=== PATIENT | female | born 1945 | race Caucasian/White ===

== ENCOUNTER 2017-08-01 19:12 | Emergency (ER) | END 2017-08-02 17:48 | disposition home or self-care (01) ==

== ENCOUNTER 2017-08-08 12:36 | Emergency (ER) | END 2017-08-08 16:37 | disposition home or self-care (01) ==

== ENCOUNTER 2018-10-25 19:50 | Emergency (ER) | payer OTHER ==
[~2018-10-25] VITALS: Ht 149.9 cm; Wt 47.4 kg
[~2018-10-25 19:50] MED LIST: BEN25 PO; CEPH-443 PO; CETI10CA PO; PRED20TA PO
[2018-10-25 20:15] VITALS: Ht 149.9 cm; Wt 47.4 kg
[2018-10-26] MEDS ORDERED: KETOROLAC 30 MG INJ IM STA (00:01)
[2018-10-26] MEDS ORDERED: NAPR-985 PO (02:52)
[2018-10-26] MEDS ORDERED: TRAM50TA2 PO ×2 (02:52→02:55)
[2018-10-26 03:38] VITALS: BP 117/86; PULSE 72; RESP 18
--- NOTE | 2018-10-26 03:52 | ERD ---
ER Documentation Chief Complaint Chief Complaint fell down 3 steps this evening, right arm pain, face injury, HPI History of Present Illness: Patient coming in today with complaint of trip and fall. Patient reports falling down stairs, denies dizziness, denies chest pain, denies shortness of breath. Patient describes a mechanical fall with pain to right arm and face. At home pharmacological/nonpharmacological treatment for symptoms: denies Denies social concerns; Denies recent foreign travel ROS All systems reviewed and are negative except as per history of present illness. Medications Home Meds Active Scripts Tramadol HCl (Tramadol HCl) 50 Mg Tablet, 25 MG PO Q8 PRN for PAIN LEVEL 6-10, #12 TAB Prov:YESENIA AHUJA V PROPERTY PRESERVATION SPECIALIST 10/26/18 Naproxen* (Naprosyn*) 500 Mg Tablet, 500 MG PO BID PRN for PAIN AND/OR INFLAMMATION, #30 TAB Prov:YESENIA AHUJA V PROPERTY PRESERVATION SPECIALIST 10/26/18 Cephalexin* (Keflex*) 500 Mg Capsule, 500 MG PO QID for 10 Days, CAP Prov:PHOEBE VITALE MD 08/08/17 Cetirizine Hcl* (Zyrtec*) 10 Mg Capsule, 10 MG PO DAILY, #15 TAB.CHEW Prov:PHOEBE VITALE MD 08/08/17 Prednisone* (Prednisone*) 20 Mg Tab, 20 MG PO DAILY for 4 Days, TAB Prov:PHOEBE VITALE MD 08/08/17 Prednisone* (Prednisone*) 20 Mg Tab, 40 MG PO DAILY for 4 Days, TAB Prov:QUINTEN BATES PA-C 08/01/17 Diphenhydramine Hcl* (Benadryl*) 25 Mg Cap, 25 MG PO Q6, #30 CAP Prov:QUINTEN BATES PA-C 08/01/17 Allergies Allergies: Coded Allergies: No Known Allergy (Unverified , 08/01/17) PMhx/Soc Medical and Surgical Hx: pt denies Medical Hx, pt denies Surgical Hx Hx Alcohol Use: No Hx Substance Use: No Hx Tobacco Use: No Smoking Status: Never smoker FmHx Family History: No diabetes, No coronary disease Physical Exam Vitals Vital Signs Date Temp Pulse Resp B/P (MAP) Pulse Ox O2 O2 Flow FiO2 Time Delivery Rate 10/26/18 98.2 72 18 117/86 99 Room Air 03:38 (96) 10/25/18 98.4 78 18 165/76 98 20:15 (105) Physical Exam Const: No acute distress, afebrile Head: Atraumatic Eyes: Normal Conjunctiva ENT: Normal External Ears, Nose and Mouth. Neck: Full range of motion. No meningismus. Resp: Clear to auscultation bilaterally Cardio: Regular rate and rhythm, no murmurs Abd: Soft, non tender, non distended. No guarding, no masses, no rigidity Skin: No petechiae or rashes Back: No midline or flank tenderness Ext: No cyanosis. Deformity noted to right wrist, tender to palpation, neurovascular intact distally, positive swelling, positive ecchymosis Neur: Awake and alert x3, speaking in clear sentences, no focal deficits or facial asymmetry Psych: Normal Mood and Affect Results 24 hrs Current Medications Medications Dose Sig/Dennis Start Time Status Last (Trade) Ordered Route PRN Stop Time Admin Dose Reason Admin Ketorolac 30 mg ONCE STAT 10/26/18 DC 10/26/18 Tromethamine IM 00:01 10/26/18 00:06 (Toradol) 00:03 Procedures/MDM ED course includes a thorough examination and history. Medications: Ketorolac for pain and inflammation Imaging: X-ray of right wrist and forearm Labs: -- Low suspicion for life-threatening medical emergency. Low suspicion for orthopedic emergency that requires immediate hospitalization/intervention. No concern for compartment syndrome. No concern for neurovascular compromise. Patient case discussed with ED Dr. Walker at 02:45. Agrees with plan of care for sugar tong splint and strict follow-up with PCP for referral to orthopedics. Patient reassessment patient reporting pain has decreased with medication. Patient hemodynamically stable. Otherwise healthy patient presenting with constellation of symptoms likely representing ulnar and radius fracture as characterized by history, physical exam findings, radiologic findings. Impression showing Comminuted intra- articular fracture of the distal radius with impaction of the distal bone. Displaced ulnar styloid fracture. Splint Assessment: Neurovascularly intact post splint placement with good fit. Sugar tong has been applied. No respiratory distress, otherwise relatively well appearing and nontoxic. Patient educated on diagnoses, prescriptions, follow-up care, return precautions. Strict return precautions given for worsening condition; questions answered discharge. Disposition for discharge with followup in 1-2 days with PCP/clinic. Departure Diagnosis: Primary Impression: Traumatic closed fracture of ulnar styloid with minimal displa... Encounter type: initial encounter Laterality: right Qualified Codes: S52.611A - Displaced fracture of right ulna styloid process, initial encounter for closed fracture Additional Impression: Radius distal fracture Encounter type: initial encounter Fracture type: closed Fracture morphology: other intra-articular Laterality: right Qualified Codes: S52.571A - Other intraarticular fracture of lower end of right radius, initial encounter for closed fracture Condition: Stable Patient Instructions: Fracture, Upper Extremity Referrals: [facility] YOU HAVE RECEIVED A MEDICAL SCREENING EXAM AND THE RESULTS INDICATE THAT YOU DO NOT HAVE A CONDITION THAT REQUIRES URGENT TREATMENT IN THE EMERGENCY DEPARTMENT. FURTHER EVALUATION AND TREATMENT OF YOUR CONDITION CAN WAIT UNTIL YOU ARE SEEN IN YOUR DOCTORS OFFICE WITHIN THE NEXT 1-2 DAYS. IT IS YOUR RESPONSIBILITY TO MAKE AN APPOINTMENT FOR FOLOW-UP CARE. IF YOU HAVE A PRIMARY DOCTOR --you should call your primary doctor and schedule an appointment IF YOU DO NOT HAVE A PRIMARY DOCTOR YOU CAN CALL OUR PHYSICIAN REFERRAL HOTLINE AT IF YOU CAN NOT AFFORD TO SEE A PHYSICIAN YOU CAN CHOSE FROM THE FOLLOWING [facility] [address] [facility]. [facility] [address] [facility] [facility] [address] [facility] [facility] [address] [facility]. [facility] [address] [facility] [facility]. [address] [facility]. [facility] YOU HAVE RECEIVED A MEDICAL SCREENING EXAM AND THE RESULTS INDICATE THAT YOU DO NOT HAVE A CONDITION THAT REQUIRES URGENT TREATMENT IN THE EMERGENCY DEPARTMENT. FURTHER EVALUATION AND TREATMENT OF YOUR CONDITION CAN WAIT UNTIL YOU ARE SEEN IN YOUR DOCTORS OFFICE WITHIN THE NEXT 1-2 DAYS. IT IS YOUR RESPONSIBILITY TO MAKE AN APPOINTMENT FOR FOLOW-UP CARE. IF YOU HAVE A PRIMARY DOCTOR --you should call your primary doctor and schedule and appointment IF YOU DO NOT HAVE A PRIMARY DOCTOR YOU CAN CALL OUR PHYSICIAN REFERRAL HOTLINE AT . IF YOU CAN NOT AFFORD TO SEE A PHYSICIAN YOU CAN CHOSE FROM THE FOLLOWING [facility] INSTITUTIONS: [facility] [address] [place] [address] [facility] [address] [place] [address] [facility] + [facility] [address] [place] [address] [facility] Additional Instructions: Thank you very much for allowing us to participate in your care. Your health and safety is our top priority at [facility]. It is important to read all discharge instructions and education provided in your discharge packet. Call your primary care doctor TOMORROW for an appointment during the next 1-2 days and bring all the information and medications prescribed. It is very imp ortant for your primary care doctor so that you can get a referral to an orthopedic surgeon for further evaluation. Have prescriptions filled and follow precisely the directions on the label. If the symptoms get worse and your provider is unavailable, return to the Emergency Department immediately. Increased swelling, increased pain, numbness, tingling, decreased sensation; return to emergency room YESENIA AHUJA NP Oct 26, 2018 03:52
== END 2018-10-26 03:39 | disposition home or self-care (01) ==
LOC: FTE 19:50
DX: S52.611A Displaced fracture of right ulna styloid process, initial encounter for closed fracture (principal); S52.571A Other intraarticular fracture of lower end of right radius, initial encounter for closed fracture; W10.9XXA Fall (on) (from) unspecified stairs and steps, initial encounter; Y92.9 Unspecified place or not applicable
CPT/HCPCS: 29125; 73090; 73110; 96372; 99284; J1885

== ENCOUNTER 2018-12-08 13:47 | Emergency (ER) | payer OTHER ==
[~2018-12-08] VITALS: Wt 45.2 kg
[~2018-12-08 13:47] MED LIST changes: +NAPR-985 PO; +TRAM50TA2 PO
[2018-12-08 13:48] VITALS: Wt 45.2 kg
--- NOTE | 2018-12-08 16:23 | ERD ---
ER Documentation Chief Complaint Chief Complaint AP SINCE LAST NIGHT HPI The patient is a 73-year-old female, presenting with epigastric abdominal pain that began around 2 AM today, vomited 3 times, mostly mucus, had similar symptoms previously, denies fever, chills, neck pain, chest pain, dyspnea, dysuria, diarrhea. She does not smoke nor drink Past medical history: None Past surgical history: Right wrist arthroscopy ROS All systems reviewed and are negative except as per history of present illness. Medications Home Meds Active Scripts Nitrofurantoin Monohyd Macrocr* (Macrobid*) 100 Mg Capsr, 100 MG PO BID for 14 Days, CAP Prov:KAYLEE ZARAGOZA MD 12/08/18 Pantoprazole* (Protonix*) 40 Mg Tablet.dr, 40 MG PO DAILY, #20 TAB Prov:KAYLEE ZARAGOZA MD 12/08/18 Tramadol HCl (Tramadol HCl) 50 Mg Tablet, 25 MG PO Q8 PRN for PAIN LEVEL 6-10, #12 TAB Prov:YESENIA AHUJA NP 10/26/18 Naproxen* (Naprosyn*) 500 Mg Tablet, 500 MG PO BID PRN for PAIN AND/OR INFLAMMATION, #30 TAB Prov:YESENIA AHUJA NP 10/26/18 Discontinued Scripts Cephalexin* (Keflex*) 500 Mg Capsule, 500 MG PO QID for 10 Days, CAP Prov:PHOEBE VITALE MD 08/08/17 Cetirizine Hcl* (Zyrtec*) 10 Mg Capsule, 10 MG PO DAILY, #15 TAB.CHEW Prov:PHOEBE VITALE MD 08/08/17 Prednisone* (Prednisone*) 20 Mg Tab, 20 MG PO DAILY for 4 Days, TAB Prov:PHOEBE VITALE MD 08/08/17 Prednisone* (Prednisone*) 20 Mg Tab, 40 MG PO DAILY for 4 Days, TAB Prov:QUINTEN BATES PA-C 08/01/17 Diphenhydramine Hcl* (Benadryl*) 25 Mg Cap, 25 MG PO Q6, #30 CAP Prov:QUINTEN BATES PA-C 08/01/17 Allergies Allergies: Coded Allergies: No Known Allergy (Unverified , 12/08/18) PMhx/Soc Hx Alcohol Use: No Hx Substance Use: No Hx Tobacco Use: No Physical Exam Vitals Vital Signs Date Temp Pulse Resp B/P (MAP) Pulse Ox O2 O2 Flow FiO2 Time Delivery Rate 12/08/18 98.0 74 20 144/72 100 Room Air 18:26 (96) 12/08/18 98.0 88 20 144/72 100 Room Air 17:40 (96) 12/08/18 98.0 79 20 160/88 100 Room Air 17:26 (112) 12/08/18 97.6 61 18 181/84 100 13:48 (116) Physical Exam Const: No acute distress. Head: Atraumatic. Eyes: Normal Conjunctiva. ENT: Normal External Ears, Nose and Mouth. Neck: Full range of motion. No meningismus. Resp: Clear to auscultation bilaterally. Cardio: Regular rate and rhythm. Abd: Soft, non distended, normal bowel sounds, non tender. Skin: No petechiae or rashes. Back: No midline or flank tenderness. Ext: No cyanosis, or edema. Neur: Awake and alert. No focal deficit Psych: Normal Mood and Affect. Result Diagram: 12/08/18 1652 12/08/18 1652 Results 24 hrs Laboratory Tests Test 12/08/18 16:50 12/08/18 16:52 Urine Color YELLOW Urine Clarity CLOUDY Urine pH 6.0 Urine Specific [place] 1.016 Urine Ketones TRACE mg/dL Urine Nitrite NEGATIVE mg/dL Urine Bilirubin NEGATIVE mg/dL Urine Urobilinogen NEGATIVE mg/dL Urine Leukocyte Esterase 1+ Landen/ul Urine Microscopic RBC 3 /HPF Urine Microscopic WBC 52 /HPF Urine Bacteria FEW /HPF Urine Mucus FEW /HPF Urine Hemoglobin NEGATIVE mg/dL Urine Glucose NEGATIVE mg/dL Urine Total Protein 1+ mg/dl White Blood Count 8.2 10^3/ul Red Blood Count 4.61 10^6/ul Hemoglobin 10.9 g/dl Hematocrit 34.9 % Mean Corpuscular Volume 75.7 fl Mean Corpuscular Hemoglobin 23.6 pg Mean Corpuscular Hemoglobin Concent 31.2 g/dl Red Cell Distribution Width 17.9 % Platelet Count 298 10^3/UL Mean Platelet Volume 10.2 fl Immature Granulocytes % 0.200 % Neutrophils % 83.1 % Lymphocytes % 10.2 % Monocytes % 4.4 % Eosinophils % 1.7 % Basophils % 0.4 % Nucleated Red Blood Cells % 0.0 /100WBC Immature Granulocytes # 0.020 10^3/ul Neutrophils # 6.8 10^3/ul Lymphocytes # 0.8 10^3/ul Monocytes # 0.4 10^3/ul Eosinophils # 0.1 10^3/ul Basophils # 0.0 10^3/ul Nucleated Red Blood Cells # 0.0 10^3/ul Sodium Level 139 mmol/L Potassium Level 4.0 mmol/L Chloride Level 103 mmol/L Carbon Dioxide Level 26 mmol/L Anion Gap 10 Blood Urea Nitrogen 12 mg/dl Creatinine 0.57 mg/dl Est Glomerular Filtrat Rate mL/min mL/min Glucose Level 125 mg/dl Calcium Level 9.4 mg/dl Total Bilirubin 0.4 mg/dl Direct Bilirubin 0.00 mg/dl Indirect Bilirubin 0.4 mg/dl Aspartate Amino Transf (AST/SGOT) 33 IU/L Alanine Aminotransferase (ALT/SGPT) 25 IU/L Alkaline Phosphatase 166 IU/L Total Protein 8.1 g/dl Albumin 4.3 g/dl Globulin 3.80 g/dl Albumin/Globulin Ratio 1.13 Lipase 194 U/L Current Medications Medications Dose Sig/Dennis Start Time Status Last (Trade) Ordered Route PRN Stop Time Admin Dose Reason Admin 40 mg ONCE ONCE 12/08/18 DC 12/08/18 Pantoprazole IV 17:30 17:33 (Protonix 12/08/18 17:31 Iv) Procedures/MDM MEDICAL MAKING DECISION: The patient is a 73-year-old female, presenting with acute cystitis, acute epigastric abdominal discomfort, was treated Protonix 40 with IV for epigastric abdominal discomfort with good response, is stable for o/p follow-up The differential diagnoses considered include but are not limited to cholelithiasis, cholecystitis, choledocholithiasis, cholangitis, pancreatitis, hepatitis, gastritis, peptic ulcer disease, gastric ulcer, appendicitis, cystitis, diverticulitis, partial small bowel obstruction. Departure Diagnosis: Primary Impression: Abdominal pain Additional Impressions: UTI (urinary tract infection) Anemia Condition: Good Comments She was discharge with Protonix, Macrobid I discussed the findings with the patient. I advised the patient to follow-up with the primary physician in about 2-3 days, sooner if needed and return if any concern. Disclaimer: Inadvertent spelling and grammatical errors are likely due to EHR/dictation software use and do not reflect on the overall quality of patient care. Also, please note that the electronic time recorded on this note does not necessarily reflect the actual time of the patient encounter. KAYLEE ZARAGOZA MD December 08, 2018 16:23
[2018-12-08] MEDS ORDERED: PANTOPRAZOLE 40 MG INJ IV ONE (17:30)
[2018-12-08] MEDS ORDERED: PANT40TA3 PO (18:05)
[2018-12-08] MEDS ORDERED: NITR-58 PO (18:05)
[2018-12-08 18:26] VITALS: BP 144/72; PULSE 74; RESP 20
== END 2018-12-08 18:28 | disposition home or self-care (01) ==
LOC: E/R 13:47
DX: N39.0 Urinary tract infection, site not specified (principal); D64.9 Anemia, unspecified
CPT/HCPCS: 36415; 80053; 81001; 83690; 85025; 96374; 99284; C9113

== ENCOUNTER 2019-02-25 22:05 | Emergency (ER) | payer OTHER ==
[~2019-02-25] VITALS: Ht 149.9 cm; Wt 49.2 kg
[~2019-02-25 22:05] MED LIST changes: -BEN25 PO; -CETI10CA PO; +NITR-58 PO; +PANT40TA3 PO; -PRED20TA PO
[2019-02-25 22:36] VITALS: Ht 149.9 cm; Wt 49.2 kg
[2019-02-26] MEDS ORDERED: LIDOCAINE/MYLANTA 40 ML BTL PO STA (01:31)
[2019-02-26] MEDS ORDERED: BELLADONNA/PHENOBARBITAL TAB PO STA (01:31)
--- NOTE | 2019-02-26 01:34 | ERD ---
ER Documentation Chief Complaint Chief Complaint EPIGASTRIC PAIN WITH NAUSEA DENIES VOMITING X 6 HOURS HPI This is a 74-year-old woman complaining of epigastric abdominal pain and nausea with a few episodes of vomiting beginning last night. She states the pain is sharp nonexertional nonradiating and she can go to sleep at night because of the discomfort. Patient also suffers from anxiety and admits to being anxious tonight. She she did have a similar episode a few months ago that was diagnosed with a urinary tract infection. She denies fevers or chills, no headache or blurry vision, no chest pain or shortness of breath. ROS All systems reviewed and are negative except as per history of present illness. Medications Home Meds Active Scripts Cephalexin* (Keflex*) 500 Mg Capsule, 500 MG PO QID for 5 Days, CAP Prov:GLENDA MEJIA MD 02/26/19 Nitrofurantoin Monohyd Macrocr* (Macrobid*) 100 Mg Capsr, 100 MG PO BID for 14 Days, CAP Prov:KAYLEE ZARAGOZA MD 12/08/18 Pantoprazole* (Protonix*) 40 Mg Tablet.dr, 40 MG PO DAILY, #20 TAB Prov:KAYLEE ZARAGOZA MD 12/08/18 Tramadol HCl (Tramadol HCl) 50 Mg Tablet, 25 MG PO Q8 PRN for PAIN LEVEL 6-10, #12 TAB Prov:YESENIA AHUJA NP 10/26/18 Naproxen* (Naprosyn*) 500 Mg Tablet, 500 MG PO BID PRN for PAIN AND/OR INFLAMMATION, #30 TAB Prov:YESENIA AHUJA NP 10/26/18 Allergies Allergies: Coded Allergies: No Known Allergy (Unverified , 12/08/18) PMhx/Soc Anxiety, gastritis History of Surgery: Yes (RT wrist sx s/p fall x3wks ago cast currently in place) Anesthesia Reaction: No Hx Miscellaneous Medical Probl: Yes (seasonal allergies) Hx Alcohol Use: No Hx Substance Use: No Hx Tobacco Use: No FmHx Family History: No diabetes Physical Exam Vitals Vital Signs Date Temp Pulse Resp B/P (MAP) Pulse Ox O2 O2 Flow FiO2 Time Delivery Rate 02/26/19 57 21 157/82 100 Room Air 02:10 (107) 02/25/19 97.4 64 18 132/79 98 22:36 (96) Physical Exam GENERAL: Well-developed, well-nourished, well-hydrated, in no apparent distress, looks nontoxic in appearance CARDIAC: Regular rate and rhythm, no murmurs rubs or gallops LUNGS: Clear bilaterally no wheezing crackles or stridor ABDOMEN: Soft nontender, no guarding, no rigidity, no rebound, no psoas sign no obturator sign. Normoactive bowel sounds SKIN: Warm and dry to touch, no abrasions, contusions, or hematomas, no lacerations, no ecchymosis, no target lesions, and without ulcers EXTREMITIES: No clubbing cyanosis or edema, calves are bilaterally symmetrical, no Homans sign, no popliteal cord sign. Distal pulses equal and bilateral PSYCH: Normal affect without agitation or irritability Results 24 hrs Laboratory Tests Test 02/26/19 02:15 Urine Color YELLOW Urine Clarity SLIGHTLY CLOUDY Urine pH 7.0 Urine Specific [place] 1.012 Urine Ketones TRACE mg/dL Urine Nitrite POSITIVE mg/dL Urine Bilirubin NEGATIVE mg/dL Urine Urobilinogen NEGATIVE mg/dL Urine Leukocyte Esterase NEGATIVE Landen/ul Urine Microscopic RBC 1 /HPF Urine Microscopic WBC 1 /HPF Urine Bacteria FEW /HPF Urine Hemoglobin NEGATIVE mg/dL Urine Glucose NEGATIVE mg/dL Urine Total Protein NEGATIVE mg/dl Current Medications Medications Dose Sig/Dennis Start Time Status Last (Trade) Ordered Route PRN Stop Time Admin Dose Reason Admin 40 ml ONCE STAT 02/26/19 DC 02/26/19 Miscellaneous PO 01:31 02/26/19 01:50 Medication 01:33 (Gi Cocktail (2)) [place]/ 2 tab ONCE STAT 02/26/19 DC 02/26/19 Phenobarbital PO 01:31 02/26/19 01:49 () 01:33 Oxycodone/ 1 tab ONCE ONCE 02/26/19 DC 02/26/19 Acetaminophen PO 02:00 02/26/19 01:50 (Percocet 02:01 (5/ 325)) Ceftriaxone 50 ml @ ONCE ONCE 02/26/19 Sodium 100 mls/hr IVPB 03:30 02/26/19 03:59 Procedures/MDM patient was placed on hall monitor rhythm strip revealed a sinus rhythm at about 80 bpm with upright P and T waves. Patient was afebrile Administered Percocet 1 tablet p.o., GI cocktail p.o. EKG performed, read by me revealed a sinus bradycardia 56 bpm, normal axis, narrow QRS complex, no concerning ST elevations or depressions noted Urine analysis was positive for infection. IV line was established administer ceftriaxone 1 g IV. Differential diagnoses considered, included but not limited to acute coronary syndrome, pulmonary embolism, aortic dissection, abdominal aortic aneurysm, sepsis, stroke, meningitis, encephalitis, pneumonia, appendicitis, cholec ystitis, bowel obstruction, pyelonephritis, nephrolithiasis, cystitis, as well as metabolic, hematologic, and electrolyte abnormalities. As well as abscess, cellulitis, fractures, and dislocations. Patient feels much better at this time, and vital signs are normal, symptoms have improved. I did give strict instructions to return to the ED if symptoms continue or worsen, patient will otherwise follow-up with primary care physician. Patient understood instructions and agreed to plan. Disclaimer: Inadvertent spelling and grammatical errors are likely due to EHR/dictation software use and do not reflect on the overall quality of patient care. Also, please note that the electronic time recorded on this note does not necessarily reflect the actual time of the patient encounter. Departure Diagnosis: Primary Impression: Abdominal pain Abdominal location: epigastric Qualified Codes: R10.13 - Epigastric pain Additional Impression: UTI (urinary tract infection) Urinary tract infection type: acute cystitis Hematuria presence: without hematuria Qualified Codes: N30.00 - Acute cystitis without hematuria Condition: GLENDA Mcdaniel MD Feb 26, 2019 01:34
[2019-02-26] MEDS ORDERED: OXYCODONE/ACETAMINOPHEN (5/325) TAB PO ONE (02:00)
[2019-02-26] MEDS ORDERED: CEFTRIAXONE 1 GM/50 ML (PMX) 50 ML IVPB ONE (03:30)
[2019-02-26 04:30] VITALS: BP 176/84; PULSE 56; RESP 13
== END 2019-02-26 04:47 | disposition home or self-care (01) ==
LOC: E/R 22:05
DX: N30.00 Acute cystitis without hematuria (principal); R40.2142 Coma scale, eyes open, spontaneous, at arrival to emergency department; R40.2362 Coma scale, best motor response, obeys commands, at arrival to emergency department; R40.2252 Coma scale, best verbal response, oriented, at arrival to emergency department
CPT/HCPCS: 36415; 81001; 87086; 93005; 96374; 99284; J0696